=== PATIENT | female | born 1960 | race Caucasian/White ===

== ENCOUNTER → 2016-10-12 | Outpatient (CLI) | payer OTHER | LOC: MC.RAD 13:00 | DX: Z12.31 Encounter for screening mammogram for malignant neoplasm of breast (principal) ==

== ENCOUNTER → 2016-12-21 | Outpatient (CLI) | payer OTHER | LOC: COL.RAD 09:44 | DX: K76.0 Fatty (change of) liver, not elsewhere classified (principal) ==

== ENCOUNTER 2017-08-21 09:59 | Emergency (ER) | payer SELFPAY ==
[~2017-08-21] VITALS: Ht 160 cm; Wt 59.1 kg
[2017-08-21] MEDS ORDERED: NORCO 325 MG-51 TAB PO (11:08)
[2017-08-21 11:22] VITALS: BP 181/98; PULSE 99; TEMP 99.4
== END 2017-08-21 11:23 | disposition home or self-care (01) ==
LOC: COL.ER 09:59
DX: S20.212A Contusion of left front wall of thorax, initial encounter (principal); W06.XXXA Fall from bed, initial encounter

== ENCOUNTER → 2017-11-07 | Outpatient (CLI) | payer BC ==
[~2017-11-07] MED LIST: NORCO 325 MG-51 TAB PO
== END ==
LOC: MC.RAD 10:08
DX: Z12.31 Encounter for screening mammogram for malignant neoplasm of breast (principal); Z98.82 Breast implant status

== ENCOUNTER 2018-03-26 08:51 | Emergency (ER) | payer BC ==
[~2018-03-26] VITALS: Ht 160 cm; Wt 62.4 kg
[2018-03-26 08:55] VITALS: TEMP 98.9
[2018-03-26] MEDS ORDERED: NORVASC 5MG5 MG/TAB PO (09:44)
[2018-03-26 09:50] VITALS: BP 134/88; PULSE 76
== END 2018-03-26 09:52 | disposition home or self-care (01) ==
LOC: COL.ER 08:51
DX: R07.89 Other chest pain (principal); I10 Essential (primary) hypertension

== ENCOUNTER → 2020-05-26 | Outpatient (CLI) | payer BC ==
[~2020-05-26] MED LIST changes: +NORVASC 5MG5 MG/TAB PO
== END ==
LOC: MC.RAD 10:00
DX: Z12.31 Encounter for screening mammogram for malignant neoplasm of breast (principal); Z98.82 Breast implant status

== ENCOUNTER → 2024-01-16 | Outpatient (CLI) | payer BC | LOC: MC.RAD 08:20 | DX: Z12.31 Encounter for screening mammogram for malignant neoplasm of breast (principal) ==